=== PATIENT | male | born 1945 | race Hispanic/Latino ===

== ENCOUNTER 2016-08-05 12:25 | Outpatient (CLI) | payer MEDICARE, OTHER ==
--- NOTE | 2016-08-05 18:45 | Magnetic Resonance Report ---
MR scan of the cranium was performed without contrast. Pulse sequences included: 1. T1 weighted sagittal and axial images without contrast 2. T2 weighted axial and coronal images 3. FLAIR axial images 4. Diffusion-weighted axial images 5. Apparent diffusion coefficient images 6. Axial gradient echo images Views of the posterior fossa showed a normal craniocervical junction. Cerebellar pontine angles were normal with normal seventh-eighth nerve complexes. Brainstem and cerebellum were normal. The ventricular system showed no dilatation or distortion. Images of the hemispheres showed occasional areas of increased signal in the white matter consistent with araiosis. Sinuses, flow voids in the [place], orbits, pituitary and basal ganglia were normal. Impression: Normal MR scan of the cranium without contrast.
== END 2016-08-05 12:26 | disposition home or self-care (01) ==
LOC: SPVIMAG 12:25
PROVIDERS: ATTEND Specialist
DX: R41.1 Anterograde amnesia (principal)
CPT/HCPCS: 70551

== ENCOUNTER 2018-11-01 13:11 | Emergency (ER) | payer MEDICARE, OTHER ==
--- NOTE | 2018-11-01 14:03 | Event Note ---
ED Screening Note Date of service: 11/01/18 Time: 14:01 ED Screening Note: 73 y o male presents with abdominal pain with vomitting pmh: SBO This initial assessment/diagnostic orders/clinical plan/treatment(s) is/are subject to change based on patients health status, clinical progression and re- assessment by fellow clinical providers in the ED. Further treatment and workup at subsequent clinical providers discretion. Patient/guardian urged not to elope from the ED as their condition may be serious if not clinically assessed and managed. Initial orders include: protocol Ct abd
[2018-11-01 14:25] LABS: Basophils # (Auto) 0.1 K/mm3 (0.0-0.1); Basophils % (Auto) 0.5 % (0.0-1.8); Eosinophils # (Auto) 0.1 K/mm3 (0.0-0.4); Eosinophils % (Auto) 0.6 % (0.0-4.3); Hematocrit 40.2 % (35.5-45.6); Hemoglobin 13.9 gm/dl (11.8-15.2); Lymphocytes % (Auto) 8.2 % (13.4-35.0); Mean Corpuscular HGB Conc 35 % (32-34); Mean Corpuscular Volume 103 fl (84-94); Monocytes % (Auto) 8.5 % (0.0-7.3); Platelet Count 320 K/mm3 (140-440); Red Blood Count 3.92 M/mm3 (3.65-5.03); Red Cell Distribution Width 12.4 % (13.2-15.2)
[2018-11-01 14:37] LABS: Bilirubin,Urine NEG (Negative); Blood,Urine SM (Negative); Color,Urine Yellow (Yellow); Mucus,Urine FEW /HPF; Protein,Urine <15 mg/dL mg/dL (Negative); Urobilinogen,Urine < 2.0 mg/dL (<2.0); WBC,Urine < 1.0 /HPF (0.0-6.0)
[2018-11-01 14:49] LABS: Alanine Aminotransferase 16 units/L (7-56); Albumin 4.7 g/dL (3.9-5); BUN/Creatinine Ratio 23; Blood Urea Nitrogen 16 mg/dL (9-20); Calcium 9.8 mg/dL (8.4-10.2); Hemolysis Index 16
--- NOTE | 2018-11-01 16:19 | Emergency Department Report ---
ED Abdominal Pain HPI - General Chief Complaint: Abdominal Pain Stated Complaint: UNABLE TO USE RESTROOM Time Seen by Provider: 11/01/18 14:01 Source: patient Mode of arrival: Ambulatory Limitations: No Limitations - History of Present Illness Initial Comments: 73 yo M h/o SBO presents c/o bowel changes and occasional pain x 10 days. Pt reports that over the past 3 days he has not had normal bowel movement. Pt reports that he has tried multiple efforts for relief including fleet supository with minimal relief. Pt denies fever, cough, sob, cp or vomiting and reports - Related Data Previous Rx's Medication Instructions Recorded Last Taken Type Docusate Sodium [Colace ORAL LIQ] 100 mg PO QDAY #90 oralsyr 11/01/18 Unknown Rx Allergies Allergy/AdvReac Type Severity Reaction Status Date / Time No Known Allergies Allergy Unverified 11/01/18 13:16 ED Review of Systems ROS: Stated complaint: UNABLE TO USE RESTROOM Other details as noted in HPI Constitutional: no symptoms reported Respiratory: denies: cough, orthopnea, shortness of breath, SOB with exertion, SOB at rest, wheezing Cardiovascular: denies: chest pain, palpitations, syncope Endocrine: denies: excessive sweating Gastrointestinal: abdominal pain, constipation. denies: nausea, vomiting, diarrhea Genitourinary: denies: urgency, dysuria Musculoskeletal: denies: back pain Neurological: denies: headache, weakness, numbness, paresthesias Psychiatric: denies: anxiety, depression ED Past Medical Hx - Past Medical History Previous Medical History?: Yes Hx Hypertension: Yes Hx CVA: Yes (TIa) Hx Heart Attack/AMI: Yes Additional medical history: Hx SBO - Surgical History Past Surgical History?: Yes Additional Surgical History: bowel resection. hernia surgery - Social History Smoking Status: Former Smoker Substance Use Type: Alcohol - Medications Home Medications: Home Medications Medication Instructions Recorded Confirmed Last Taken Type Docusate Sodium [Colace ORAL LIQ] 100 mg PO QDAY #90 oralsyr 11/01/18 Unknown Rx ED Physical Exam - General Limitations: No Limitations General appearance: alert, in no apparent distress - Eye Eye exam: Present: PERRL Pupils: Present: normal accommodation - ENT ENT exam: Present: mucous membranes moist. Absent: mucous membranes dry - Neck Neck exam: Present: normal inspection - Respiratory Respiratory exam: Present: normal lung sounds bilaterally. Absent: respiratory distress, wheezes, rales - Cardiovascular Cardiovascular Exam: Present: regular rate, normal rhythm - GI/Abdominal GI/Abdominal exam: Present: tenderness, normal bowel sounds. Absent: distended, guarding, rebound, rigid, diminished bowel sounds, pulsatile mass, hernia - Rectal Rectal exam: Present: normal inspection, normal rectal tone. Absent: fecal impaction, hemorrhoids, mass, tenderness - Extremities Exam Extremities exam: Present: normal inspection, full ROM - Back Exam Back exam: Present: normal inspection, full ROM - Neurological Exam Neurological exam: Present: alert, altered - Psychiatric Psychiatric exam: Present: normal mood. Absent: depressed, agitated, anxious - Skin Skin exam: Present: normal color ED Course Vital Signs 11/01/18 11/01/18 11/01/18 13:54 17:44 17:49 Temperature 98.2 F 99.1 F Pulse Rate 70 62 Respiratory 18 13 13 Rate Blood Pressure 158/79 Blood Pressure 135/70 [Left] O2 Sat by Pulse 95 98 98 Oximetry 11/01/18 18:47 Temperature 98.0 F Pulse Rate 68 Respiratory 12 Rate Blood Pressure Blood Pressure 152/74 [Left] O2 Sat by Pulse 96 Oximetry Vital Signs 11/01/18 11/01/18 11/01/18 13:54 17:44 17:49 Temperature 98.2 F 99.1 F Pulse Rate 70 62 Respiratory 18 13 13 Rate Blood Pressure 158/79 Blood Pressure 135/70 [Left] O2 Sat by Pulse 95 98 98 Oximetry 11/01/18 18:47 Temperature 98.0 F Pulse Rate 68 Respiratory 12 Rate Blood Pressure Blood Pressure 152/74 [Left] O2 Sat by Pulse 96 Oximetry - Reevaluation(s) Reevaluation #1: 11/01/18 18:16 Patient reports improvement in symptoms secondary to bowel movement in the ED. No abdominal tenderness on reevaluation of patient. ED Medical Decision Making - Lab Data Result diagrams: 11/01/18 14:10 11/01/18 14:10 Lab Results 11/01/18 11/01/18 11/01/18 Range/Units 14:10 14:10 14:15 WBC 12.1 H (4.5-11.0) K/mm3 RBC 3.92 (3.65-5.03) M/mm3 Hgb 13.9 (11.8-15.2) gm/dl Hct 40.2 (35.5-45.6) % MCV 103 H (84-94) fl MCH 35 H (28-32) pg MCHC 35 H (32-34) % RDW 12.4 L (13.2-15.2) % Plt Count 320 (140-440) K/mm3 Lymph % (Auto) 8.2 L (13.4-35.0) % [place] % (Auto) 8.5 H (0.0-7.3) % Eos % (Auto) 0.6 (0.0-4.3) % Baso % (Auto) 0.5 (0.0-1.8) % Lymph # 1.0 L (1.2-5.4) K/mm3 [place] # 1.0 H (0.0-0.8) K/mm3 Eos # 0.1 (0.0-0.4) K/mm3 Baso # 0.1 (0.0-0.1) K/mm3 Seg Neutrophils % 82.2 H (40.0-70.0) % Seg Neutrophils # 9.9 H (1.8-7.7) K/mm3 Sodium 128 L (137-145) mmol/L Potassium 4.8 (3.6-5.0) mmol/L Chloride 88.9 L (98-107) mmol/L Carbon Dioxide 25 (22-30) mmol/L Anion Gap 19 mmol/L BUN 16 (9-20) mg/dL Creatinine 0.7 L (0.8-1.5) mg/dL Estimated GFR > 60 ml/min BUN/Creatinine Ratio 23 % Glucose 101 H (75-100) mg/dL Lactic Acid (0.7-2.0) mmol/L Calcium 9.8 (8.4-10.2) mg/dL Total Bilirubin 0.50 (0.1-1.2) mg/dL AST 29 (5-40) units/L ALT 16 (7-56) units/L Alkaline Phosphatase 90 (35-129) units/L Total Protein 8.1 (6.3-8.2) g/dL Albumin 4.7 (3.9-5) g/dL Albumin/Globulin Ratio 1.4 % Urine Color Yellow (Yellow) Urine Turbidity Clear (Clear) Urine pH 5.0 (5.0-7.0) Ur Specific [place] 1.013 (1.003-1.030) Urine Protein <15 mg/dl (Negative) mg/dL Urine Glucose (UA) Neg (Negative) mg/dL Urine Ketones Neg (Negative) mg/dL Urine Blood Sm (Negative) Urine Nitrite Neg (Negative) Urine Bilirubin Neg (Negative) Urine Urobilinogen < 2.0 (<2.0) mg/dL Ur Leukocyte Esterase Neg (Negative) Urine WBC (Auto) < 1.0 (0.0-6.0) /HPF Urine RBC (Auto) 3.0 (0.0-6.0) /HPF U Epithel Cells (Auto) < 1.0 (0-13.0) /HPF Urine Mucus Few /HPF 11/01/18 Range/Units 17:04 WBC (4.5-11.0) K/mm3 RBC (3.65-5.03) M/mm3 Hgb (11.8-15.2) gm/dl Hct (35.5-45.6) % MCV (84-94) fl MCH (28-32) pg MCHC (32-34) % RDW (13.2-15.2) % Plt Count (140-440) K/mm3 Lymph % (Auto) (13.4-35.0) % [place] % (Auto) (0.0-7.3) % Eos % (Auto) (0.0-4.3) % Baso % (Auto) (0.0-1.8) % Lymph # (1.2-5.4) K/mm3 [place] # (0.0-0.8) K/mm3 Eos # (0.0-0.4) K/mm3 Baso # (0.0-0.1) K/mm3 Seg Neutrophils % (40.0-70.0) % Seg Neutrophils # (1.8-7.7) K/mm3 Sodium (137-145) mmol/L Potassium (3.6-5.0) mmol/L Chloride (98-107) mmol/L Carbon Dioxide (22-30) mmol/L Anion Gap mmol/L BUN (9-20) mg/dL Creatinine (0.8-1.5) mg/dL Estimated GFR ml/min BUN/Creatinine Ratio % Glucose (75-100) mg/dL Lactic Acid 1.90 (0.7-2.0) mmol/L Calcium (8.4-10.2) mg/dL Total Bilirubin (0.1-1.2) mg/dL AST (5-40) units/L ALT (7-56) units/L Alkaline Phosphatase (35-129) units/L Total Protein (6.3-8.2) g/dL Albumin (3.9-5) g/dL Albumin/Globulin Ratio % Urine Color (Yellow) Urine Turbidity (Clear) Urine pH (5.0-7.0) Ur Specific [place] (1.003-1.030) Urine Protein (Negative) mg/dL Urine Glucose (UA) (Negative) mg/dL Urine Ketones (Negative) mg/dL Urine Blood (Negative) Urine Nitrite (Negative) Urine Bilirubin (Negative) Urine Urobilinogen (<2.0) mg/dL Ur Leukocyte Esterase (Negative) Urine WBC (Auto) (0.0-6.0) /HPF Urine RBC (Auto) (0.0-6.0) /HPF U Epithel Cells (Auto) (0-13.0) /HPF Urine Mucus /HPF - EKG Data 11/01/18 18:42 Normal sinus rhythm normal axis, no ST elevations or depressions, rate of 60 - Radiology Data FINDINGS: CT abdomen without contrast demonstrates grossly normal appearance of the liver, pancreas, kidneys, and adrenal glands. Gallbladder is unremarkable. Small hiatal hernia noted. There is an extensive amount of stool noted throughout the colon consistent with severe constipation. Small bowel is unremarkable. I do not see evidence of mechanical bowel obstruction. CT pelvis without contrast does not demonstrate any pelvic mass or free fluid. There is no focal inflammatory change. As stated in the above paragraph, there is a very large amount of stool seen throughout the entire colon. There is a small fecal impaction. The urinary bladder is moderately distended. There are changes consistent with prior abdominal wall hernia repair. No recurrent hernia noted. Visualized lung bases are clear. Degenerative changes are present within the lumbar spine. IMPRESSION: 1. Extensive amount of stool is present throughout the colon with small fecal impaction. 2. Urinary bladder is prominently distended as well. - Medical Decision Making 73-year-old male presents with chief complaint of constipation 3 days. Patient has had multiple bowel movements in the ED. Symptoms markedly improved. We'll discharge with stool softeners and follow primary care doctor for further evaluation. Critical Care Time: No Critical care attestation.: If time is entered above; I have spent that time in minutes in the direct care of this critically ill patient, excluding procedure time. ED Disposition Clinical Impression: Constipation Disposition: DC-01 TO HOME OR SELFCARE Is pt being admited?: No Does the pt Need Aspirin: No Condition: Fair Instructions: Constipation (ED), High Fiber Diet (ED) Prescriptions: Docusate Sodium [Colace ORAL LIQ] 100 mg PO QDAY #90 oralsyr Referrals: PRIMARY CARE, [Referring] - 3-5 Days Time of Disposition: 18:40
--- NOTE | 2018-11-01 18:00 | Cat Scan Report ---
CT abdomen pelvis wo con INDICATION / CLINICAL INFORMATION: MAIN: abd pain today and abdomen was distended. TECHNIQUE: Axial CT imaging of abdomen and pelvis was obtained without contrast. Coronal and sagittal reformatte d imaging obtained and reviewed. All CT scans at this location are performed using CT dose reduction for ALARA by means of automated exposure control. COMPARISON: Prior CT, 08/03/2008. FINDINGS: CT abdomen without contrast demonstrates grossly normal appearance of the liver, pancreas, kidneys, a nd adrenal glands. Gallbladder is unremarkable. Small hiatal hernia noted. There is an extensive amount of stool noted throughout the colon consistent with severe constipation. Small bowel is unremarkable. I do not see evidence of mechanical bowel obstruction. CT pelvis without contrast does not demonstrate any pelvic mass or free fluid. There is no focal infl ammatory change. As stated in the above paragraph, there is a very large amount of stool seen through out the entire colon. There is a small fecal impaction. The urinary bladder is moderately distended. There are changes consistent with prior abdominal wall hernia repair. No recurrent hernia noted. Visualized lung bases are clear. Degenerative changes are present within the lumbar spine. IMPRESSION: 1. Extensive amount of stool is present throughout the colon with small fecal impaction. 2. Urinary bladder is prominently distended as well. Signer Name: Joana Maradiaga MD Signed: 11/01/2018 5:56 PM Workstation Name: [id number]
[2018-11-01] MEDS ORDERED: CITRATE OF MAGNESIA PO ONE (18:17)
[2018-11-01 18:48] VITALS: BP 152/74
== END 2018-11-01 19:12 | disposition home or self-care (01) ==
LOC: ED 13:11
DX: K59.00 Constipation, unspecified (principal); Z86.73 Personal history of transient ischemic attack (TIA), and cerebral infarction without residual deficits; Z87.891 Personal history of nicotine dependence
CPT/HCPCS: 36415; 74176; 80053; 81001; 82140; 85025; 93005; 93010; 99284

== ENCOUNTER 2018-12-08 10:37 | Outpatient (CLI) | payer MEDICARE, OTHER ==
--- NOTE | 2018-12-08 13:48 | Fluoroscopy Report ---
AIR CONTRAST BARIUM ENEMA HISTORY: Colonic constipation, incomplete colonoscopy. FINDINGS: [employer] film of the abdomen demonstrated a large amount of gas throughout the small and large intestines secondary to recent incomplete colonoscopy. A rectal tube was inserted for retrograde adm inistration of barium contrast. Air contrast was also added. The colon is normal caliber and distensibility throughout. There are scattered diverticula throughout the length of the colon. There is no evidence for mucosal defect, mass or stenosis. The terminal ile um and appendix were not identified. IMPRESSION: Mild diverticulosis of the colon. No colonic mass or obstruction is identified. Fluoroscopy time: 3.5 minutes. Fluoroscopic images: 18 Signer Name: Greg Barrera Jr, MD Signed: 12/08/2018 1:44 PM Workstation Name: [id number]
== END 2018-12-08 10:38 | disposition home or self-care (01) ==
LOC: FLUORO 10:37
PROVIDERS: ATTEND Internal Medicine Gastroenterology
DX: K57.30 Diverticulosis of large intestine without perforation or abscess without bleeding (principal); I10 Essential (primary) hypertension
CPT/HCPCS: 74280